=== PATIENT | male | born 1965 | race Caucasian/White ===

== ENCOUNTER 2017-02-02 10:32 | Emergency (ER) | payer OTHER ==
[~2017-02-02] VITALS: Ht 182.9 cm; Wt 77.0 kg
[~2017-02-02 10:32] MED LIST: NAPR-58 PO
[2017-02-02] MEDS ORDERED: GABA-533 PO (10:52)
[2017-02-02] MEDS ORDERED: ChlordiazePOXIDE HCL 25 MG CAPSULE PO ONE (11:15)
[2017-02-02] MEDS ORDERED: GABAPENTIN 400 MG CAPSULE PO ONE (11:15)
[2017-02-02 12:44] VITALS: BP 132/81
== END 2017-02-02 12:45 | disposition home or self-care (01) ==
LOC: EMS 10:34
DX: F10.239 Alcohol dependence with withdrawal, unspecified (principal); M19.90 Unspecified osteoarthritis, unspecified site; F17.210 Nicotine dependence, cigarettes, uncomplicated
CPT/HCPCS: 99283

== ENCOUNTER 2018-01-14 12:35 | Emergency (ER) | payer OTHER ==
[~2018-01-14] VITALS: Ht 182.9 cm; Wt 77.3 kg
[~2018-01-14 12:35] MED LIST changes: +GABA-533 PO
[2018-01-14] MEDS ORDERED: SODIUM CHLORIDE 0.9% 1,000 ML IV ONE (13:00)
[2018-01-14] MEDS ORDERED: ONDANSETRON HCL 4 MG/2 ML VIAL IVP ONE (13:00)
[2018-01-14 13:27] LABS: EOSINOPHILS % (AUTO) 1.9 % (1.0-6.0); HEMATOCRIT 44.1 % (41-53); HEMOGLOBIN 15.3 g/dL (13.5-17.5); LYMPHOCYTES # (AUTO) 1.7 K/uL (1.0-4.8); LYMPHOCYTES % (AUTO) 29.2 % (22.0-44.0); MEAN CORPUSCULAR HGB CONC 34.6 G/dL (31.0-37.0); MEAN CORPUSCULAR VOLUME 96 fL (80-100); MONOCYTES # (AUTO) 0.4 K/uL (0.1-1.0); MONOCYTES % (AUTO) 7.6 % (2.0-9.0); NEUTROPHILS # (AUTO) 3.5 K/uL (1.8-7.7); NEUTROPHILS % (AUTO) 60.3 % (40.0-70.0); PLATELET COUNT (AUTO) 152 K/uL (150-450); RED BLOOD CELL COUNT(AUTO) 4.62 MIL/uL (4.50-5.90); RED CELL DISTRIBUTION WIDTH 14.4 % (11.5-14.5)
[2018-01-14 13:32] LABS: ANION GAP 12 mmol/L (8-16); CALCIUM, TOTAL 8.5 mg/dL (8.8-10.5); CARBON DIOXIDE 29 mmol/L (22-29); CHLORIDE 106 mmol/L (98-107); CREATININE 0.88 mg/dL (0.60-1.30); GLOMERULAR FILTR. RATE CALC > 60 mL/min (>60); GLUCOSE,RANDOM 100 mg/dL (70-110); POTASSIUM 3.3 mmol/L (3.5-5.1); SODIUM SERUM 147 mmol/L (136-145); UREA NITROGEN, BLOOD 16 mg/dL (7-18)
[2018-01-14 13:39] LABS: ALANINE AMINOTRANSFERASE 199 U/L (12-78); ALBUMIN 3.4 g/dL (3.4-5.0); ALKALINE PHOSPHATASE 52 U/L (46-116); ASPARTATE AMINOTRANSFERASE 264 U/L (15-37); BILIRUBIN,TOTAL 0.4 mg/dL (0.1-1.0)
[2018-01-14 16:14] VITALS: BP 101/69
== END 2018-01-14 17:44 | disposition home or self-care (01) ==
LOC: EMS 12:36
DX: T51.0X1A Toxic effect of ethanol, accidental (unintentional), initial encounter (principal); M19.90 Unspecified osteoarthritis, unspecified site; F17.210 Nicotine dependence, cigarettes, uncomplicated; Z59.0 Homelessness
CPT/HCPCS: 36415; 80053; 85025; 96361; 96374; 99291; 99406; G0480; J2405; J7030

== ENCOUNTER 2018-11-01 14:51 | Emergency (ER) | payer OTHER ==
[~2018-11-01] VITALS: Ht 182.9 cm; Wt 88.6 kg
[2018-11-01] MEDS ORDERED: LIB25 PO (15:06)
[2018-11-01] MEDS ORDERED: BUSP10TA23 PO (16:37)
[2018-11-01] MEDS ORDERED: CITA-106 PO (16:37)
[2018-11-01] MEDS ORDERED: FOLI1 PO (16:37)
[2018-11-01] MEDS ORDERED: LEVE500T53 PO (16:37)
[2018-11-01] MEDS ORDERED: MELO-107 PO (16:37)
[2018-11-01 17:11] VITALS: BP 133/79
== END 2018-11-01 17:24 | disposition home or self-care (01) ==
LOC: EMS 14:52
DX: F10.20 Alcohol dependence, uncomplicated (principal); F17.210 Nicotine dependence, cigarettes, uncomplicated; M19.90 Unspecified osteoarthritis, unspecified site; Z59.0 Homelessness
CPT/HCPCS: 99406

== ENCOUNTER 2018-11-02 02:20 | Emergency (ER) | payer OTHER ==
[~2018-11-02 02:20] MED LIST changes: +BUSP10TA23 PO; +CITA-106 PO; +FOLI1 PO; +LEVE500T53 PO; +LIB25 PO; +MELO-107 PO; -NAPR-58 PO
== END 2018-11-02 02:56 | disposition left against medical advice (07) ==
LOC: EMS 02:21
DX: F10.10 Alcohol abuse, uncomplicated (principal); Z53.21 Procedure and treatment not carried out due to patient leaving prior to being seen by health care provider

== ENCOUNTER 2018-12-12 19:03 | Emergency (ER) | payer OTHER ==
[~2018-12-12] VITALS: Ht 172.7 cm; Wt 72.7 kg
[2018-12-13 02:25] VITALS: BP 122/79
[2018-12-13] MEDS ORDERED: ChlordiazePOXIDE HCL 25 MG CAPSULE PO ONE (03:15)
== END 2018-12-13 03:15 | disposition home or self-care (01) ==
LOC: EMS 19:04
DX: J00 Acute nasopharyngitis [common cold] (principal); F10.10 Alcohol abuse, uncomplicated; M19.90 Unspecified osteoarthritis, unspecified site; F17.210 Nicotine dependence, cigarettes, uncomplicated; Z59.0 Homelessness